=== PATIENT | male | born 1965 | race Caucasian/White ===

== ENCOUNTER 2017-08-10 23:10 | Inpatient (IN) | payer OTHER ==
[2017-08-11] MEDS ORDERED: HYDROmorphONE 0.5 MG/0.5 ML SYG IV
[2017-08-11] MEDS: morphine 2 MG INJ IV ×6 (00:47→22:25)
[2017-08-11 00:59] LABS: ALANINE AMINOTRANSFERASE 18 IU/L (13-69); ALBUMIN 2.4 g/dl (3.3-4.9); ALKALINE PHOSPHATASE 698 IU/L (42-121); ANION GAP 18 (8-16); ASPARTATE AMINO TRANSFERASE 20 IU/L (15-46); BILIRUBIN,INDIRECT 0.3 mg/dl (0-1.1); BILIRUBIN,TOTAL 0.3 mg/dl (0.2-1.3); BLOOD UREA NITROGEN 40 mg/dl (7-20); CALCIUM 8.2 mg/dl (8.4-10.2); CARBON DIOXIDE 23 mmol/L (21-31); CHLORIDE 100 mmol/L (97-110); CREATININE 1.15 mg/dl (0.61-1.24); GLUCOSE 154 mg/dl (70-220); MAGNESIUM 2.1 mg/dl (1.7-2.5); PHOSPHORUS 4.7 mg/dl (2.5-4.9); POTASSIUM 5.5 mmol/L (3.5-5.1); SODIUM 135 mmol/L (135-144); TOTAL PROTEIN 6.4 g/dl (6.1-8.1)
[2017-08-11] MEDS: DEXTROSE 5%-0.45% NACL 1,000 ML IV (01:26)
[2017-08-11 02:39] LABS: ABNORMAL IP MESSAGE 1; HEMATOCRIT 23.8 % (42.0-52.0); HEMOGLOBIN 7.3 g/dl (14.0-18.0); MEAN CORPUSCULAR HGB CONC 30.7 g/dl (32.0-37.0); MEAN CORPUSCULAR VOLUME 84.7 fl (82.0-101.0); MEAN PLATELET VOLUME 9.2 fl (7.4-10.4); PLATELET COUNT 481 10^3/UL (140-415); POSITIVE DIFF @See below; RED BLOOD COUNT 2.81 10^6/ul (4.70-6.10); RED CELL DISTRIBUTION WIDTH 19.3 % (11.5-14.5)
[2017-08-11 02:39] LABS: WHITE BLOOD COUNT 14.9 10^3/ul (4.8-10.8)
[2017-08-11 02:41] LABS: ADD MAN DIFF? YES
[2017-08-11] MEDS ORDERED: GLUCAGON 1 MG INJ IM (03:00)
[2017-08-11] MEDS ORDERED: DEXTROSE 50% 50 ML SYRINGE IV ×2 (03:00)
[2017-08-11] MEDS ORDERED: GLUCOSE GEL 15 GRAM TUBE PO ×2 (03:00)
[2017-08-11] MEDS ORDERED: GLUCOSE GEL 15 GRAM TUBE BUCCAL (03:00)
[2017-08-11] MEDS ORDERED: NACL 0.9% 3 ML SYG IV (03:00)
[2017-08-11] MEDS ORDERED: ALBUTEROL/IPRATROPIUM (NEB) 3 ML AMP HHN (03:00)
[2017-08-11] MEDS: NA POLYST SULFON 15 GM/60 ML BTL PO (03:25)
[2017-08-11 03:44] LABS: ANISOCYTOSIS 1+ (0-0); BAND NEUTROPHILS #M 4.1 10^3/ul (0.0-0.6); BAND NEUTROPHILS % (M) 28 % (0-4); HYPOCHROMASIA 1+ (0-0); LYMPHOCYTES #M 0.2 10^3/ul (0.8-2.9); LYMPHOCYTES % (M) 2 % (15-51); MICROCYTOSIS 1+ (0-0); MONOCYTES % (M) 7 % (0-11); PLATELET ESTIMATE NORMAL; POIKILOCYTOSIS 3+ (0-0); POLYCHROMASIA 3+ (0-0); SEGMENTED NEUTROPHILS (M) % 63 % (39-77); SMUDGE%M 2 % (0-0)
[2017-08-11] MEDS: ONDANSETRON 4 MG INJ IV (04:21)
[2017-08-11] MEDS: PANTOPRAZOLE 40 MG INJ IV (05:30)
[2017-08-11 06:19] LABS: IRON 23 ug/dl (35-150)
[2017-08-11 06:28] LABS: % IRON SATURATION 16 % SAT (22-52); TOTAL IRON BINDING CAPACITY 146 ug/dl (241-421)
[2017-08-11] MEDS: CEFTRIAXONE 1 GM/50 ML (PMX) 50 ML IVPB (08:13)
[2017-08-11] MEDS: INSULIN ASPART [NOVOLOG] 3 ML PEN SC ×4 (08:26→21:00)
[2017-08-11 10:16] LABS: ADD UMIC YES; UR ASCORBIC ACID NEGATIVE (NEGATIVE); UR BACTERIA FEW /HPF (NONE SEEN); UR BILIRUBIN (Dip) 1+ mg/dL (NEGATIVE); UR BLOOD (Dip) NEGATIVE (NEGATIVE); UR CLARITY CLOUDY (CLEAR); UR COLOR AMBER (YELLOW); UR GLUCOSE (Dip) 1+ mg/dL (NEGATIVE); UR KETONES (Dip) NEGATIVE (NEGATIVE); UR LEUKOCYTE ESTERASE (Dip) 2+ Leu/ul (NEGATIVE); UR MUCUS FEW /HPF (NONE SEEN); UR NITRITE (Dip) NEGATIVE (NEGATIVE); UR RBC 13 /HPF (0-5); UR SPECIFIC GRAVITY (Dip) 1.025 (1.003-1.030); UR SQUAMOUS EPITHELIAL CELL MANY /HPF (FEW); UR TOTAL PROTEIN (Dip) 1+ mg/dl (NEGATIVE); UR UROBILINOGEN (Dip) 2+ mg/dL (NEGATIVE); UR WBC 27 /HPF (0-5)
[2017-08-11 12:45] LABS: IMMEDIATE SPIN CROSSMATCH 1 2
[2017-08-11] MEDS: PROMETHAZINE/CODEINE 5ML CUP PO ×2 (12:54→21:07)
[2017-08-11] MEDS: INSULIN GLARGINE [LANtus] 3 ML PEN SC (20:00)
[2017-08-12] MEDS ORDERED: ACCU-CHEK XX (02:00)
[2017-08-12] MEDS: morphine 2 MG INJ IV (04:09)
[2017-08-12] MEDS: PANTOPRAZOLE 40 MG INJ IV (06:00)
[2017-08-12] MEDS ORDERED: morphine (ER) 30 MG TAB PO (09:00)
[2017-08-12] MEDS: CEFTRIAXONE 1 GM/50 ML (PMX) 50 ML IVPB (09:10)
[2017-08-12] MEDS: morphine (DRIP) 100 MG/100 ML 100 ML IV (12:23)
== END 2017-08-13 02:17 | disposition expired | DRG 372 ==
LOC: MS2 23:10
DX: K65.2 Spontaneous bacterial peritonitis (principal); C19 Malignant neoplasm of rectosigmoid junction; C78.7 Secondary malignant neoplasm of liver and intrahepatic bile duct; C77.2 Secondary and unspecified malignant neoplasm of intra-abdominal lymph nodes; K76.6 Portal hypertension; I46.9 Cardiac arrest, cause unspecified; E11.8 Type 2 diabetes mellitus with unspecified complications; K74.60 Unspecified cirrhosis of liver
CPT/HCPCS: 36430; 76705; 80053; 81001; 82728; 82962; 83540; 83735; 84100; 85025; 86850; 86870; 86900; 86901; 86902; 86920; 87040; 87081; 87086